=== PATIENT | male | born 1970 | race Caucasian/White ===

== ENCOUNTER 2017-04-22 05:22 | Day surgery (SDC) | payer OTHER ==
[2017-04-21 09:19] VITALS: BMI 37.3
[~2017-04-22] VITALS: Ht 170.2 cm; Wt 108.3 kg
[2017-04-22] MEDS ORDERED: MITOMYCIN 5 MG INJ LEFT EYE SCH (06:00)
[2017-04-22 06:14] VITALS: Ht 170.2 cm; Wt 108.3 kg
[2017-04-22 06:15] VITALS: BP 97/63; PULSE 92; RESP 18
[2017-04-22] MEDS ORDERED: LISI2.5T59 PO (06:29)
[2017-04-22] MEDS ORDERED: ISOS30TA18 PO (06:35)
[2017-04-22] MEDS ORDERED: FAMO20TA18 PO (06:35)
[2017-04-22] MEDS ORDERED: CLOP75TA27 PO (06:35)
[2017-04-22] MEDS ORDERED: ATOR20TA38 PO (06:35)
[2017-04-22] MEDS ORDERED: METO50TA16 PO (06:35)
[2017-04-22] MEDS ORDERED: ASPI-535 PO (06:35)
[2017-04-22] MEDS ORDERED: SITA1TAB5 PO (06:35)
[2017-04-22] MEDS ORDERED: GLIP5TAB13 PO (06:35)
[2017-04-22] MEDS ORDERED: LIDOCAINE 2%/EPI 30 ML INJ ONE (06:59)
[2017-04-22] MEDS ORDERED: TOBRAMYCIN/DEXAMETH 3.5 GM OPH OINT ONE (06:59)
[2017-04-22] MEDS ORDERED: BALANCED SALT SOLN 15 ML OPH IRRIG ONE (07:00)
--- NOTE | 2017-04-22 07:27 | HPN ---
Date/Time of Note Date/Time of Note DATE: 04/22/17 TIME: 07:26 Interval H&P Admission Note Pt. seen H&P reviewed: No system changes GERMÁN DYER MD Apr 22, 2017 07:27
[2017-04-22] MEDS ORDERED: FENTAnyl 50 MCG/ML VIAL ONE (07:30)
[2017-04-22] MEDS ORDERED: MIDAZOLAM 1 MG/ML 2 ML INJ ONE (07:30)
[2017-04-22] MEDS ORDERED: PROPOFOL 0 ML ONE (07:30)
[2017-04-22] MEDS ORDERED: LIDOCAINE 2%/EPI MPF (SDV) 20 ML VIAL INJ ONE (07:39)
[2017-04-22] MEDS ORDERED: TOBRAMYCIN/DEXAMETH 3.5 GM OPH OINT LEFT EYE ONE (07:54)
[2017-04-22] MEDS ORDERED: OXYCODONE/ACETAMINOPHEN (5/325) TAB PO PRN ×2 (08:00)
[2017-04-22] MEDS ORDERED: ONDANSETRON 4 MG INJ IV PRN (08:00)
[2017-04-22] MEDS ORDERED: HYDROmorphONE (0.2 MG/ML) 10ML SYG IV PRN ×3 (08:00)
[2017-04-22 08:14] VITALS: BP 119/72; PULSE 88; RESP 12
[2017-04-22 08:18] VITALS: BP 110/68; PULSE 80; RESP 14
--- NOTE | 2017-04-22 08:18 | SIPON ---
Date/Time of Note Date/Time of Note DATE: 04/22/17 TIME: 08:16 Operative Report Preoperative Diagnosis pterygium left eye Postoperative Diagnosis same Operation/Procedure Performed exsicion of pterygium left eye Surgeon: GERMÁN DYER MD Anesthesia Type: MAC Estimated Blood Loss: none Transfusion Required: no Specimen: none Grafts/Implants: none Complications: no GERMÁN DYER MD Apr 22, 2017 08:18
[2017-04-22 08:23] VITALS: BP 99/64; PULSE 78; RESP 14
[2017-04-22 08:28] VITALS: BP 111/67; PULSE 76; RESP 14
[2017-04-22 08:36] VITALS: BP 109/63; PULSE 75; RESP 16
--- NOTE | 2017-04-22 08:45 | OPR ---
DATE OF OPERATION: 04/22/2017 SURGEON: Pattie Treviño MD PERINATAL TECHNICIAN: None. ANESTHESIOLOGIST: PREOPERATIVE DIAGNOSIS: Pterygium, left eye. POSTOPERATIVE DIAGNOSIS: Pterygium, left eye. OPERATION: Excision of pterygium, left eye; application of mitomycin C; closure of defect with conjunctival advancement flaps. DESCRIPTION OF PROCEDURE: Following standard preparation and draping of the patient, a solid-blade lid speculum was placed for immobilization of the lids. A small amount of 2% Xylocaine with epinephrine was injected beneath the body of the pterygium so as to elevate it from the underlying sclerae. After adequate local anesthesia was obtained, Bev scissors were simply used to make an incision along the edges of the pterygium, amputating the body approximately 1 cm posterior to the limbus. At the limbus, the major portion of the tissue was simply excised using sharp scissors. Using a rotating lee ann bur, all of the scar tissue on the cornea was removed down to clear cornea. At this point, bleeding points were secured with the heat cautery. Mitomycin C (0.2 mg/ml) was now applied to the limbal regions for three minutes. After three minutes, the eye was copiously irrigated with balanced salt solution. A peritomy was now performed both superiorly and inferiorly and relaxing incisions made at approximately the 6 and 12 o'clock positions. The undermining conjunctiva was now pulled both superiorly and inferiorly so as to close the previously made defect from which the pterygium had been removed. Sutures of interrupted 8-0 Vicryl were used and a bite of the underlying sclera was taken so as to ensure adequate maintenance of the flaps in a nonmovable position. Betadine 5% solution was placed on the eye, along with TobraDex ointment. A light pressure dressing was applied, and the patient returned to the recovery room in satisfactory condition. Dictated By: Pattie Treviño MD /justin/fernanda /Document#: [id number]
[2017-04-22] MEDS ORDERED: ETOMIDATE 20 MG INJ ONE (11:38)
== END 2017-04-22 09:30 | disposition home or self-care (01) ==
LOC: SDS 05:22
PROVIDERS: ATTEND Ophthalmology
DX: H11.002 Unspecified pterygium of left eye (principal); E78.5 Hyperlipidemia, unspecified; I10 Essential (primary) hypertension; E11.9 Type 2 diabetes mellitus without complications; I25.2 Old myocardial infarction
CPT/HCPCS: 65426; 82962; J2250; J3010; J9280; Z7512; Z7610

== ENCOUNTER 2017-06-15 09:52 | Day surgery (SDC) | END 2017-06-15 14:05 | disposition home or self-care (01) | DX: H25.12 Age-related nuclear cataract, left eye (principal); E11.9 Type 2 diabetes mellitus without complications; I25.10 Atherosclerotic heart disease of native coronary artery without angina pectoris; I10 Essential (primary) hypertension | CPT/HCPCS: 66984; 82962; J0171; V2632; Z7512; Z7610 ==

== ENCOUNTER 2018-06-23 05:33 | Day surgery (SDC) | END 2018-06-23 11:37 | disposition home or self-care (01) ==